=== PATIENT | female | born 1960 | race Caucasian/White ===

== ENCOUNTER 2016-11-20 17:01 | Emergency (ER) | payer MEDICARE, MEDICAID | END 2016-11-20 20:30 | disposition home or self-care (01) | LOC: ED 17:01 | DX: Z04.9 Encounter for examination and observation for unspecified reason (principal); Z86.73 Personal history of transient ischemic attack (TIA), and cerebral infarction without residual deficits; I50.9 Heart failure, unspecified; E11.9 Type 2 diabetes mellitus without complications; I10 Essential (primary) hypertension; F31.9 Bipolar disorder, unspecified; F17.210 Nicotine dependence, cigarettes, uncomplicated; Z79.899 Other long term (current) drug therapy ==